=== PATIENT | male | born 1975 | race Caucasian/White ===

== ENCOUNTER 2019-04-30 09:02 | Outpatient (CLI) | payer MEDICARE, SELFPAY ==
--- NOTE | 2019-04-30 09:24 | ECG_ITS ---
Measurements Intervals [place] Rate: 54 P: 12 [place]: 147 QRS: 32 QRSD: 86 T: 1 QT: 420 QTc: 401 Interpretive Statements SINUS BRADYCARDIA VOLTAGE CRITERIA FOR LVH BORDERLINE T WAVE ABNORMALITY- INFERIOR LEADS BASELINE ARTIFACT- II, III, AVF BORDERLINE ECG Electronically Signed On 04-30-2019 10:09:12 [employer] by Florin Huerta D.O.
== END 2019-04-30 09:03 | disposition home or self-care (01) ==
PROVIDERS: PCP Internal Medicine; Visit Provider Nurse Practitioner
DX: R03.0 Elevated blood-pressure reading, without diagnosis of hypertension (principal); R94.31 Abnormal electrocardiogram [ECG] [EKG]
CPT/HCPCS: 93005

== ENCOUNTER 2019-08-04 09:26 | Emergency (ER) | payer MEDICARE, SELFPAY ==
--- NOTE | ~2019-08-04 | CT_ITS ---
EXAMINATION: CT abdomen pelvis w con DATE: 08/04/2019 10:22 INDICATION: Left lower quadrant abdominal pain TECHNIQUE: Computed tomography (CT) of the abdomen and pelvis was performed with 100 cc Omnipaque 350 intravenous contrast. Automated exposure control and iterative reconstruction technique were employe d. Exam dose: 856.54 mGy-cm total exam DLP. COMPARISON: None. FINDINGS: The included lung arce are clear. Normal heart size. No pericardial or pleural effusion. Very small sliding hiatal hernia. Diffuse hepatic steatosis. No hepatic space-occupying mass lesion. The appearance small dependent non obstructing gallstone. No gallbladder wall thickening or pericholecystic fluid or stranding. No bile duct or pancreatic duct dilatation. No pancreatic mass lesion or calcification. Normal splenic size. Normal morphology of the adrenal glands. No renal mass lesion or urinary tract calculus or hydroureteronephrosis. Normal caliber of the abdominal aorta. No intraperitoneal or retroperitoneal or pelvic mass lesion or adenopathy or ascites. Normal appendix. Minimal colonic diverticulosis. There is mild focal pericolic fat stranding at the distal descending colon as well as adjacent thicke karma of the lateral conal and anterior pararenal fascia. The findings are likely due to epiploic appe ndagitis or mild focal diverticulitis. Included skeletal structures are unremarkable. IMPRESSION: Focal pericolic inflammatory change of di stal descending colon consistent with epiploic appendagitis or mild focal diverticulitis Minimal colonic diverticulosis Very small sliding hiatal hernia Hepatic steatosis Reviewed, dictated and finalized at [facility]. Reviewed, dictated and finalized at location [facility].
[2019-08-04 09:32] VITALS: BP 174/93; PULSE 90; RESP 18; TEMP 37.5; O2SAT 98
[2019-08-04 09:49] LABS: Basophils Percent Auto 0.3 % (0.2-1.2); Eosinophils Absolute Auto 0.2 K/mm3 (0-0.3); Eosinophils Percent Auto 2.7 % (0-4.4); Hematocrit 45.4 % (42.0-52.0); Immature Granulocyte Absolute 0.02 K/mm3 (0.00-0.031); Immature Granulocyte Percent A 0.3 % (0-0.5); Lymphocytes Absolute Auto 2.74 K/mm3 (0.9-3.2); Lymphocytes Percent Auto 37.3 % (18.3-44.2); Mean Corpuscular Hemoglobin 27.6 pg (26-34); Mean Corpuscular Volume 83.6 fl (80-100); Mean Platelet Volume 9.5 fl (7.4-10.4); Monocytes Absolute Auto 0.8 K/mm3 (0.1-0.6); Monocytes Percent Auto 10.3 % (2.6-8.5); Neutrophils Absolute Auto 3.6 K/mm3 (1.3-6.7); Neutrophils Percent Auto 49.1 % (45.5-73.1); Platelet Count Result 269 k/mm3 (150-375); Red Blood Count 5.43 M/mm3 (4.6-6.20); Red Cell Distribution Width 13.1 % (11.5-14.5); White Blood Count 7.4 K/mm3 (4.5-10.0)
[2019-08-04] MEDS: MORPHINE SULFATE 4 MG/ML INJ IV PUSH (09:52)
[2019-08-04 10:01] LABS: Alanine Aminotransferase 33 U/L (4-50); Alkaline Phosphatase 56 U/L (38-126); Aspartate Amino Transferase 39 U/L (17-59); Bilirubin,Total 0.6 mg/dL (0.2-1.3); Blood Urea Nitrogen 17 mg/dL (9-20); Calcium 9.6 mg/dL (8.4-10.2); Carbon Dioxide 25 mmol/L (22-30); Chloride 100 mmol/L (98-107); Estimated CRCL calculation 104 ml/min; Estimated Glomerular Filt Rate > 60; Glucose 94 mg/dL (75-110); Lipase 44 U/L (23-300); Potassium 3.8 mmol/L (3.4-5.0); Sodium 137 mmol/L (137-145)
--- NOTE | 2019-08-04 10:20 | ED.ABDPAIN ---
HPI - Abdominal Pain General Chief Complaint: Abdominal Pain Stated Complaint: ABD PAIN X1D Time Seen by Provider: 08/04/19 09:38 History of Present Illness HPI narrative: Patient is a 43-year-old male who presents the ER with left-sided abdominal pain. Began yesterday and is increasing intensity. Sharp and located in the left lower quadrant. Patient has educational delay and has done occultly verbalizing what is going on. History obtained from mother. Has not had pain like this previously. Pain is worse with movement. He has been afebrile at home. Related Data Home Medications Medication Instructions Recorded Confirmed fenofibrate 160 mg tablet 160 mg PO DAILY 04/30/19 aouttrfbsbed-tfiqlqks-evhmxh 1 tablet PO DAILY 04/30/19 omega-3 fatty acids 1,000 mg 1,000 mg PO DAILY 04/30/19 capsule Allergies Allergy/AdvReac Type Severity Reaction Status Date / Time No Known Allergies Allergy Verified 08/04/19 09:37 Review of Systems Review of Systems: ROS unobtainable: Yes unobtainable due to medical condition PMFSH Past Medical History Medical History (Updated 08/04/19 @ 11:18 by Boris Galeas MD) Anxiety Chicken pox Cognitive impairment Expressive aphasia External hemorrhoid H/O: CVA (cerebrovascular accident) Hearing difficulty Hematochezia Hyperlipidemia Mumps Family History Family History (Updated 04/29/19 @ 12:55 by Virginia Gutierrez [facility]) Grandparent Family history of coronary artery disease Mother Breast cancer Hypertension Skin cancer Father Lung cancer Social History Social History Smoking status: Never smoker Alcohol intake: current Gender identity (if verbalized by the patient): Male Exam Narrative: Exam Narrative: GENERAL: Uncomfortable-appearing, well-nourished, and in no acute distress. HEAD: Normocephalic, atraumatic. CHEST: Clear to auscultation. No respiratory distress. HEART: Regular rate and rhythm. Normal peripheral pulses. ABDOMEN: Soft, tender palpation left lower quadrant with guarding, nondistended, normal active bowel sounds. EXTREMITIES: Normal range of motion. No edema. SKIN: Warm, dry, no rash. NEURO: Awake and alert, and neurologic baseline per family. PSYCH: Slightly anxious. Course Vital Signs Vital signs: Vital Signs Temperature 99.5 F 08/04/19 09:32 Pulse Rate 90 06/07/20 09:32 Respiratory Rate 18 08/04/19 09:32 Blood Pressure 174/93 H 08/04/19 09:32 Pulse Oximetry 98 08/04/19 09:32 Temperature 99.5 F 08/04/19 09:32 Pulse Rate 90 08/04/19 09:32 Respiratory Rate 18 08/04/19 09:32 Blood Pressure 174/93 H 08/04/19 09:32 Pulse Oximetry 98 08/04/19 09:32 MDM - Abdominal Pain Lab Data Result diagrams: 08/04/19 09:42 08/04/19 09:42 Labs: Lab Results 08/04/19 08/04/19 Range/Units 09:42 09:42 WBC 7.4 (4.5-10.0) K/mm3 RBC 5.43 (4.6-6.20) M/mm3 Hgb 15.0 (14.0-18.0) g/dL Hct 45.4 (42.0-52.0) % MCV 83.6 (80-100) fl MCH 27.6 (26-34) pg MCHC 33.0 (32-36) g/dl RDW 13.1 (11.5-14.5) % Plt Count 269 (150-375) k/mm3 MPV 9.5 (7.4-10.4) fl Immature Gran % (Auto) 0.3 (0-0.5) % Neut % (Auto) 49.1 (45.5-73.1) % Lymph % (Auto) 37.3 (18.3-44.2) % [place] % (Auto) 10.3 H (2.6-8.5) % Eos % (Auto) 2.7 (0-4.4) % Baso % (Auto) 0.3 (0.2-1.2) % Lymph # (Auto) 2.74 (0.9-3.2) K/mm3 [place] # (Auto) 0.8 H (0.1-0.6) K/mm3 Eos # (Auto) 0.2 (0-0.3) K/mm3 Baso # (Auto) 0.0 (0.0-0.1) K/mm3 Abs Immat Gran (auto) 0.02 (0.00-0.031) K/mm3 Absolute Neuts (auto) 3.6 (1.3-6.7) K/mm3 Absolute Nucleated RBC 0.0 (0.0-0.012) K/mm3 Nucleated RBC % 0.0 (0.0-0.2) % Sodium 137 (137-145) mmol/L Potassium 3.8 (3.4-5.0) mmol/L Chloride 100 (98-107) mmol/L Carbon Dioxide 25 (22-30) mmol/L BUN 17 (9-20) mg/dL Creatinine 0.70 (0.7-1.3) mg/dL Estim Creat Clear Calc 104 ml/min Estimated GFR
== END 2019-08-04 11:45 | disposition home or self-care (01) ==
PROVIDERS: Emergency Provider Emergency Medicine; PCP Internal Medicine
DX: K57.92 Diverticulitis of intestine, part unspecified, without perforation or abscess without bleeding (principal); K63.89 Other specified diseases of intestine; G31.84 Mild cognitive impairment of uncertain or unknown etiology; E78.5 Hyperlipidemia, unspecified; R47.01 Aphasia; Z86.73 Personal history of transient ischemic attack (TIA), and cerebral infarction without residual deficits; K57.90 Diverticulosis of intestine, part unspecified, without perforation or abscess without bleeding; K76.0 Fatty (change of) liver, not elsewhere classified; K44.9 Diaphragmatic hernia without obstruction or gangrene
CPT/HCPCS: 36415; 74177; 80053; 83690; 85025; 96374; 99284; J2270; Q9967

== ENCOUNTER 2020-05-05 08:19 | Outpatient (CLI) | payer MEDICARE, SELFPAY | END 2020-05-05 08:20 | disposition home or self-care (01) | LOC: ANHCOVIDVC 08:19 | PROVIDERS: PCP Internal Medicine; Visit Provider Internal Medicine | DX: Z23 Encounter for immunization (principal) | CPT/HCPCS: 0001A; 91300 ==

== ENCOUNTER 2020-05-26 08:20 | Outpatient (CLI) | payer MEDICARE, SELFPAY | END 2020-05-26 08:21 | disposition home or self-care (01) | LOC: ANHCOVIDVC 08:20 | PROVIDERS: PCP Internal Medicine; Visit Provider Internal Medicine | DX: Z23 Encounter for immunization (principal) | CPT/HCPCS: 0002A; 91300 ==

== ENCOUNTER 2020-06-18 12:44 | Emergency (ER) | payer MEDICARE, SELFPAY ==
[2020-06-18] VITALS (13 sets, daily range): BP systolic 151–177; BP diastolic 89–107; PULSE 87–98; RESP 18–26; TEMP 36.6; O2SAT 95–98
--- NOTE | ~2020-06-18 | XR_ITS ---
EXAMINATION: XR chest 1V portable DATE: 06/18/2020 14:03 INDICATION: Syncope. TECHNIQUE: A single frontal view of the chest was obtained. COMPARISON: CT abdomen and pelvis 08/04/2019 FINDINGS: The chest demonstrates clear lungs without pneumonia, pleural effusion, or pneumothorax. Th e heart size is normal. IMPRESSION: 1. No acute cardiopulmonary disease. Reviewed, dictated and finalized at location [facility].
--- NOTE | 2020-06-18 13:08 | ECG_ITS ---
Measurements Intervals [place] Rate: 94 P: 29 [place]: 116 QRS: 42 QRSD: 79 T: -22 QT: 320 QTc: 401 Interpretive Statements SINUS RHYTHM WITH SHORT [place] INTERVAL LEFT VENTRICULAR HYPERTROPHY WITH ST-T CHANGE BORDERLINE ST-T WAVE ABNORMALITY- DIFFUSE LEADS BASELINE ARTIFACT- I, II, III, AVR, AVL, AVF BORDERLINE ECG Electronically Signed On 06-18-2020 13:44:23 CDT by Florin Huerta D.O.
[2020-06-18 13:27] LABS: Basophils Percent Auto 0.3 % (0.2-1.2); Eosinophils Percent Auto 0.7 % (0-4.4); Hematocrit 45.7 % (42.0-52.0); Hemoglobin 15.1 g/dL (14.0-18.0); Immature Granulocyte Absolute 0.02 K/mm3 (0.00-0.031); Immature Granulocyte Percent A 0.3 % (0-0.5); Lymphocytes Absolute Auto 1.29 K/mm3 (0.9-3.2); Mean Corpuscular Hemoglobin 28.3 pg (26-34); Mean Corpuscular Volume 85.7 fl (80-100); Mean Platelet Volume 9.4 fl (7.4-10.4); Monocytes Absolute Auto 0.5 K/mm3 (0.1-0.6); Monocytes Percent Auto 8.8 % (2.6-8.5); Neutrophils Absolute Auto 4.2 K/mm3 (1.3-6.7); Neutrophils Percent Auto 68.9 % (45.5-73.1); Platelet Count Result 261 k/mm3 (150-375); Red Blood Count 5.33 M/mm3 (4.6-6.20); Red Cell Distribution Width 13.1 % (11.5-14.5); White Blood Count 6.2 K/mm3 (4.5-10.0)
[2020-06-18 13:46] LABS: Anion Gap 14 mmol/L (8-16); Blood Urea Nitrogen 16 mg/dL (9-20); Calcium 10.3 mg/dL (8.4-10.2); Carbon Dioxide 24 mmol/L (22-30); Chloride 99 mmol/L (98-107); Estimated CRCL calculation 81 ml/min; Estimated Glomerular Filt Rate > 60; Glucose 178 mg/dL (75-110); Potassium 4.2 mmol/L (3.4-5.0); Sodium 137 mmol/L (137-145)
[2020-06-18] MEDS: SODIUM CHLORIDE 0.9% IV 1,000 ML 999 ML IV CONT (13:50)
--- NOTE | 2020-06-18 13:57 | ED.GENADULT ---
HPI - General Adult General Chief complaint: Unspecified Stated complaint: sweaty, shaking Time Seen by Provider: 06/18/20 13:11 Source: RN notes reviewed History of Present Illness HPI narrative: Patient presents emergency department from constipation for near syncopal episode. Patient was at incision and began to feel hot and sweaty and feels like he might pass out. The patient did not have a full syncopal episode and was with his mother. Per the mother the patient does have a history of anxiety and has had episodes where he has similar feelings with his anxiety and mother notes he was anxious earlier today patient currently denies any symptoms Leiner any denies any fevers or chills chest pain, shortness of breath, abdominal pain, nausea vomiting or any other symptoms Related Data Home Medications Medication Instructions Recorded Confirmed ueqadjuyfwsv-gurissxp-gxgaab tablet 1 tablet PO DAILY 04/30/19 omega-3 fatty acids 1,000 mg 1,000 mg PO DAILY 04/30/19 capsule Allergies Allergy/AdvReac Type Severity Reaction Status Date / Time No Known Allergies Allergy Verified 06/18/20 13:35 Review of Systems Review of Systems: Narrative: Gen.: Denies fevers or chills ENT: Denies congestion Respiratory: Denies shortness of breath or cough CV: See HPI GI: Denies abdominal pain nausea, emesis or diarrhea denies burning, urgency, frequency or hematuria Musculoskeletal: Denies back pain or muscle pain Neuro: Denies numbness, tingling, weakness or focal weakness Skin: Denies rash Except as documented, all other systems reviewed and negative PMFSH Past Medical History Medical History Anxiety Chicken pox Cognitive impairment Expressive aphasia External hemorrhoid H/O: CVA (cerebrovascular accident) Hearing difficulty Hematochezia Hyperlipidemia Mumps Family History Family History (Updated 04/29/19 @ 12:55 by Virginia Doshi CMA) Grandparent Family history of coronary artery disease Mother Breast cancer Hypertension Skin cancer Father Lung cancer Social History Social History Smoking status: Never smoker Alcohol intake: current Gender identity (if verbalized by the patient): Male Exam Narrative: Exam Narrative: APPEARANCE: No acute distress, nontoxic, resting in bed EYES: EOMI HEENT: Normocephalic, atraumatic, OMM RESPIRATORY: No respiratory distress Clear to auscultation bilaterally with no rhonchi wheezing or rales. CARDIOVASCULAR: Regular rate and rhythm without murmurs rubs or gallops. ABDOMINAL: Soft, nontender, nondistended, no rebound or guarding MUSCULOSKELETAl: Moves all extremities. No clubbing, cyanosis or edema. NEURO: Awake and alert. Following commands, speech normal, no focal deficits SKIN:: Warm, dry. No rashes lesions or abrasions PSYCHIATRIC: Normal affect/mood, Course Course Emergency Course: Patient is remained asymptomatic in the ED Discussed with patient results of workup and diagnosis. Discussed need for follow-up with primary care, proper use of medication, and reasons to return to the emergency department. Patient understands and agrees to current treatment plan Vital Signs Vital signs: Vital Signs Temperature 97.8 F 06/18/20 13:05 Pulse Rate 98 06/18/20 13:05 Respiratory Rate 18 06/18/20 13:05 Blood Pressure 151/99 H 06/18/20 13:05 Pulse Oximetry 98 06/18/20 13:05 Temperature 97.8 F 06/18/20 13:05 Pulse Rate 89 06/18/20 15:10 Respiratory Rate 25 H 06/18/20 15:10 Blood Pressure 173/99 H 06/18/20 15:10 Pulse Oximetry 97 06/18/20 15:10 Medical Decision Making MDM Narrative Medical decision making narrative: Patient's episode of syncope is felt due to high risk cause. Syncopal episode was brief and patient is now back to normal mental status. EKG is reviewed without high-risk changes for syncope: There are no signs
[2020-06-18 14:19] LABS: D Dimer 0.27 ug/mL (<0.48)
[2020-06-18 14:20] LABS: Troponin I < 0.012 ng/mL (0.000-0.034)
[2020-06-18 15:19] LABS: Add Urine Microscopic? NO; Appearance Urine Clear (Clear); Bilirubin Urine Negative (Negative); Blood Urine Negative (Negative); Color Urine Yellow (Yellow); Glucose Urine UA Negative (Negative); Ketones Urine Negative (Negative); Leukocyte Esterase Ur Negative LEU/UL (Negative); Nitrate Urine Negative (Negative); Protein Urine Negative (Negative); Urobilinogen Urine Negative mg/dL (<2.0)
[2020-06-18 16:22] LABS: Troponin I < 0.012 ng/mL (0.000-0.034)
== END 2020-06-18 16:55 | disposition home or self-care (01) ==
PROVIDERS: Emergency Medicine; Emergency Provider Emergency Medicine; PCP Internal Medicine
DX: R55 Syncope and collapse (principal); E78.5 Hyperlipidemia, unspecified; F41.9 Anxiety disorder, unspecified; Z86.73 Personal history of transient ischemic attack (TIA), and cerebral infarction without residual deficits; I51.7 Cardiomegaly; R94.31 Abnormal electrocardiogram [ECG] [EKG]
CPT/HCPCS: 36415; 71045; 80048; 81003; 84484; 85025; 85380; 93005; 96360; 99284; J7030

== ENCOUNTER 2020-08-02 19:45 | Inpatient (IN) | payer MEDICARE, SELFPAY ==
[2020-08-02] VITALS (20 sets, daily range): BP systolic 121–173; BP diastolic 77–105; PULSE 83–128; RESP 17–35; TEMP 36.6–36.9; O2SAT 94–99; BMI 27.2
--- NOTE | ~2020-08-02 | XR_ITS ---
XR chest 2V DATE: 08/02/2020 20:31 INDICATION: Chest pain TECHNIQUE: PA and lateral views COMPARISON: 06/18/2020 portable AP chest FINDINGS: Normal heart size. No hilar or mediastinal enlargement. No pulmonary infiltrate or consolid ation, pleural effusion or pulmonary vascular congestion or pneumothorax. IMPRESSION: No active cardiopulmonary disease Reviewed, dictated and finalized at location A.
--- NOTE | 2020-08-02 19:54 | ECG_ITS ---
Measurements Intervals [place] Rate: 124 P: 42 [place]: 140 QRS: 54 QRSD: 73 T: -33 QT: 369 QTc: 530 Interpretive Statements SINUS TACHYCARDIA LEFT VENTRICULAR HYPERTROPHY AND ST-T CHANGE ST-T WAVE ABNORMALITY IN ANTEROLAT/INF LEADS- CONSIDER ISCHEMIA BASELINE WANDER- V1 ABNORMAL ECG Electronically Signed On 08-02-2020 21:19:04 CDT by Florin Huerta D.O.
[2020-08-02 20:09] LABS: Basophils Percent Auto 0.1 % (0.2-1.2); Eosinophils Percent Auto 0.1 % (0-4.4); Hematocrit 44.6 % (42.0-52.0); Hemoglobin 14.4 g/dL (14.0-18.0); Immature Granulocyte Absolute 0.05 K/mm3 (0.00-0.031); Immature Granulocyte Percent A 0.3 % (0-0.5); Lymphocytes Percent Auto 7.4 % (18.3-44.2); Mean Corpuscular HGB Conc 32.3 g/dl (32-36); Mean Corpuscular Hemoglobin 27.7 pg (26-34); Mean Corpuscular Volume 85.8 fl (80-100); Mean Platelet Volume 9.2 fl (7.4-10.4); Monocytes Absolute Auto 0.9 K/mm3 (0.1-0.6); Monocytes Percent Auto 6.4 % (2.6-8.5); Neutrophils Absolute Auto 12.7 K/mm3 (1.3-6.7); Neutrophils Percent Auto 85.7 % (45.5-73.1); Platelet Count Result 286 k/mm3 (150-375); Red Cell Distribution Width 13.3 % (11.5-14.5); White Blood Count 14.8 K/mm3 (4.5-10.0)
[2020-08-02 20:19] LABS: Anion Gap 25 mmol/L (8-16); Blood Urea Nitrogen 23 mg/dL (9-20); Calcium 10.4 mg/dL (8.4-10.2); Carbon Dioxide 17 mmol/L (22-30); Chloride 103 mmol/L (98-107); Estimated CRCL calculation 57 ml/min; Estimated Glomerular Filt Rate 59; Glucose 155 mg/dL (75-110); Potassium 3.4 mmol/L (3.4-5.0); Prothrombin Time 13.5 Seconds (11.1-14.7); Sodium 145 mmol/L (137-145)
[2020-08-02 20:20] LABS: Partial Thromboplastin Time 24.7 SECONDS (22.3-36.8)
[2020-08-02 20:33] LABS: Troponin I 0.208 ng/mL (0.000-0.034)
--- NOTE | 2020-08-02 20:59 | ED.GENADULT ---
HPI - General Adult General Chief complaint: Unspecified Stated complaint: Brain and chest are on fire Time Seen by Provider: 08/02/20 20:38 Source: family Limitations: clinical condition History of Present Illness HPI narrative: Patient is 44 years old white male mentally challenged brought to the emergency room by his mom because of sudden onset of nervousness in the form of tapping his feet on the ground, pointing to his chest and head saying tired started 2G p.m. today. Patient had a lot of lifting of heavy boxes today subsequently developed diaphoresis and starting that he is on fire. History of hypertension, hyperlipidemia, depression, anxiety. His brother had history of heart attack at age 3636 years old. The mother denied that the patient had any fever, chills or nausea but vomited once in the emergency room. Currently patient still pointing in his chest. Related Data Home Medications Medication Instructions Recorded Confirmed vzxdzsqrfnui-tpbdrkds-asjlzw tablet 1 tablet PO DAILY 04/30/19 06/24/20 omega-3 fatty acids 1,000 mg 1,000 mg PO DAILY 04/30/19 06/24/20 capsule aspirin 81 mg chewable tablet 81 mg PO DAILY 06/24/20 06/24/20 Allergies Allergy/AdvReac Type Severity Reaction Status Date / Time No Known Allergies Allergy Verified 06/18/20 13:35 Review of Systems Review of Systems: ROS unobtainable: Yes unobtainable due to medical condition PMFSH Past Medical History Medical History (Updated 08/02/20 @ 22:30 by Elsa Mann DO) Anxiety Chicken pox CVA (cerebral vascular accident) Old CVAs noted on MRI 2018 left basal ganglia and left internal capsule Essential hypertension Expressive aphasia External hemorrhoid Hearing difficulty Normal auditory evaluation September 2018 Hyperlipidemia Intellectual disability Mumps Family History Family History (Updated 08/02/20 @ 22:27 by Elsa Mann DO) Grandparent Family history of coronary artery disease Mother Breast cancer Hypertension Skin cancer Father Lung cancer Sibling Heart disease, Onset Age: 36 Social History Social History Smoking status: Never smoker Alcohol intake: current Gender identity (if verbalized by the patient): Male Exam Narrative: Exam Narrative: General appearance: Well-developed, well-nourished, restless, shaking Skin: Normal color Head: Normocephalic, nontraumatic Eyes: Clear conjunctiva ENT: Oropharynx normal, ears normal, nose normal Neck: Supple, nontender Chest and respiratory: Airway patent, no respiratory distress, no accessory muscle use Heart: Tachycardia Abdomen: Soft, nontender, no organomegaly, quiet bowel sounds Vascular: Normal peripheral pulses, normal capillary refill. Musculoskeletal: Normal range of motion, nontender back Neurologic: Alert and oriented ?3, MANAGER OF CLINICAL is normal as tested, no gross motor deficit Course Course Emergency Course: Improving Reevaluation(s) Reevaluation #1: Currently patient is pain-free, looks back to his normal status according to his mom evaluation. Date: 08/02/20 Time: 22:16 Consultations Consultation #1: Dr. Rodriguez Date: 08/02/20 Time: 22:16 Vital Signs Vital signs: Vital Signs Temperature 36.9 C 08/02/20 19:47 Pulse Rate 127 H 08/02/20 19:47 Respiratory Rate 25 H 08/02/20 19:47 Blood Pressure 155/105 H 08/02/20 19:47 Pulse Oximetry 96 08/02/20 19:47 Temperature 36.9 C 08/02/20 19:47 Pulse Rate 104 H 08/02/20 21:26 Respiratory Rate 34 H 08/02/20 21:16 Blood Pressure 173/92 H 08/02/20 21:16 Pulse Oximetry 97 08/02/20 21:16 Medical Decision Making [facility] Narrative Medical dec
[2020-08-02 21:19] LABS: D Dimer 0.27 ug/mL (<0.48)
[2020-08-02] MEDS: ASPIRIN 81 MG CHEWABLE TABLET 324 MG PO (21:25)
[2020-08-02] MEDS: METOPROLOL TARTRATE INJ 5 MG/5 ML VIAL IV PUSH ×3 (21:25→21:26)
[2020-08-02] MEDS: SODIUM CHLORIDE 0.9% IV 1,000 ML 999 ML IV CONT ×2 (21:26→23:33)
[2020-08-02] MEDS: ONDANSETRON INJ 4 MG/2 ML VIAL IV PUSH (21:26)
[2020-08-02] MEDS: MORPHINE SULFATE (*CRX) 4 MG/ML INJ IV PUSH (21:26)
--- NOTE | 2020-08-02 21:38 | ECG_ITS ---
Measurements Intervals [place] Rate: 93 P: 22 [place]: 142 QRS: 18 QRSD: 85 T: -6 QT: 353 QTc: 440 Interpretive Statements SINUS RHYTHM VOLTAGE CRITERIA FOR LVH BASELINE ARTIFACT- II, III, AVR, AVL, AVF, V1-V6 BORDERLINE ECG Electronically Signed On 08-03-2020 7:14:59 CDT by Florin Huerta D.O.
[2020-08-02] MEDS: LORazepam INJ (*CRX) 2 MG/ML VIAL 0.5 MG IV PUSH (22:14)
[2020-08-02] MEDS: HEPARIN SODIUM 5,000 UNITS/ML VIAL 4000 UNITS IV PUSH (22:16)
[2020-08-02] MEDS: HEPARIN SOD/D5W 100 UNITS/ML 25,000 UNITS/250 ML BAG 8 UNITS IV CONT (22:16)
--- NOTE | 2020-08-02 22:21 | PM.IMHP ---
H&P: HPI History of Present Illness Date/Time: 08/02/20 22:21 Chief Complaint: Head and chest feel like they are on fire Narrative: 44-year-old with past medical history of intellectual disability, anxiety, hyperlipidemia and hypertension who presented to the ER via private vehicle due to ?feeling like he is on fire.? The patient's mother reports that they had been outside working in the garden earlier in the day. The patient then carried 3 bags of 40 lb rock salt down to the basement. These are activities that are not unusual for the patient to perform on a frequent basis. However after he got back up stairs the patient began having severe diaphoresis. He seemed anxious and restless. His mom reports that he was tapping his feet nonstop. He was on fire. He was repetitively tapping at its chest when asked if he was having any pain. His symptoms started around 230 and lasted for about 4 hours. When the patient's symptoms persisted and then he started pulling off his pants and close in exposing himself. She noted that the patient was walking in a stiff manner in seemed to be holding his head to the side. Patient had not had any fevers or previous still symptoms. He did have 1 episode of emesis while in the ER. Initially his mother thought that he was having an anxiety attack as he has been evaluated in ER with similar symptoms. The patient denies any abdominal pain, headaches, or current nausea. Review of systems limited due to patient's intellectual disability. He reports that he is thirsty and hungry. The patient has a half brother who had an NE at the age of 36. Review of Systems Review of Systems: ROS unobtainable: Yes unobtainable due to medical condition (Intellectual disability) [facility] Past Medical History Medical History (Updated 08/03/20 @ 02:50 by Elsa Mann DO) Anxiety Chicken pox CVA (cerebral vascular accident) Old CVAs noted on MRI 2018 left basal ganglia and left internal capsule Essential hypertension Expressive aphasia External hemorrhoid Hearing difficulty Normal auditory evaluation September 2018 Hyperlipidemia Intellectual disability Mumps Surgical History Surgical History (Updated 08/03/20 @ 02:43 by Elsa Mann DO) Normal colonoscopy (~2019) Family History Family History Grandparent Family history of coronary artery disease Mother Breast cancer Hypertension Skin cancer Father Lung cancer Sibling Heart disease, Onset Age: 36 Social History Social History (Updated 08/03/20 @ 02:45 by Elsa Mann DO) Social History: He lives at home with his mother. He graduated from high school through special education program. Primary care physician: Dr. Baltazar Verduzco Code status: Full code Surrogate decision maker: Mother Smoking status: Never smoker Alcohol intake: current Substance use: never Substance use type: does not use Gender identity (if verbalized by the patient): Male Spiritual care concerns: No Meds Home Medications and Allergies Home Medications Medication Instructions Recorded Confirmed Type djdobfntibmq-kpzaqjby-bldhvu tablet 1 tablet PO DAILY 04/30/19 08/03/20 History omega-3 fatty acids 1,000 mg 1,000 mg PO DAILY 04/30/19 08/03/20 History capsule fenofibrate 160 mg tablet 160 mg PO DAILY #90 tablet 11/25/19 08/03/20 Rx atorvastatin 20 mg tablet 20 mg PO DAILY #90 tablet 06/09/20 08/03/20 Rx buspirone 7.5 mg tablet 7.5 mg PO BID #180 tablet 06/09/20 08/03/20 Rx citalopram 20 mg tablet 20 mg PO DAILY #90 tablet 06/09/20 08/03/20 Rx aspirin 81 mg chewable tablet 81 mg PO DAILY 06/24/20 08/03/20 History lisinopril 10 mg tablet 10 mg PO DAILY #30 tablet 06/24/20 08/03/20 Rx lorazepam 1 mg tablet 1 mg PO DAILY PRN #15 tablet MDD 1 06/24/20 08/03/20 Rx tablet Allergies Allergy/AdvReac Type Severity Reaction Status Date / Time No Known Allergies Allergy Verifie
[2020-08-02 22:31] LABS: Creatine Kinase 270 U/L (55-170)
--- NOTE | 2020-08-02 22:58 | PC.NURSE ---
talked to Fracisco the pharmacist, asked if heparin and NS can run together, stated that it should be fine.
[2020-08-02 23:02] LABS: Albumin Level 4.9 g/dL (3.5-5.1); Alkaline Phosphatase 44 U/L (38-126); Aspartate Amino Transferase 47 U/L (17-59); Bilirubin,Total 0.2 mg/dL (0.2-1.3)
[2020-08-02 23:09] LABS: Alanine Aminotransferase 38 U/L (4-50)
[2020-08-02 23:10] LABS: Troponin I 0.373 ng/mL (0.000-0.034)
--- NOTE | 2020-08-02 23:45 | ADMGEN ---
This patient, Mp Benitez, was admitted to IMU Room 203-01 AT 2345. Patient/family oriented to hospital policies and general routines including ID bracelet, bed and alarms, visiting hours, pain management, procedures, bathroom and other care routines, personal items, smoking policy, room service/diet, and visiting hours. Information on how to activate the Rapid Response Team has been discussed. Patient/Family are encouraged to report perceived risks to care and to ask questions if they do not understand what they are told or what they should do.
[2020-08-03] VITALS (22 sets, daily range): BP systolic 119–145; BP diastolic 61–89; PULSE 57–87; RESP 17–24; TEMP 36–36.9; O2SAT 93–98
[2020-08-03 01:58] LABS: Basophils Percent Auto 0.2 % (0.2-1.2); Eosinophils Percent Auto 0.1 % (0-4.4); Hematocrit 38.9 % (42.0-52.0); Hemoglobin 12.7 g/dL (14.0-18.0); Immature Granulocyte Absolute 0.04 K/mm3 (0.00-0.031); Immature Granulocyte Percent A 0.3 % (0-0.5); Lymphocytes Absolute Auto 1.76 K/mm3 (0.9-3.2); Lymphocytes Percent Auto 14.6 % (18.3-44.2); Mean Corpuscular HGB Conc 32.6 g/dl (32-36); Mean Corpuscular Hemoglobin 27.9 pg (26-34); Mean Corpuscular Volume 85.5 fl (80-100); Mean Platelet Volume 9.4 fl (7.4-10.4); Monocytes Absolute Auto 1.2 K/mm3 (0.1-0.6); Monocytes Percent Auto 10.1 % (2.6-8.5); Neutrophils Percent Auto 74.7 % (45.5-73.1); Platelet Count Result 233 k/mm3 (150-375); Red Blood Count 4.55 M/mm3 (4.6-6.20); Red Cell Distribution Width 13.5 % (11.5-14.5); White Blood Count 12.1 K/mm3 (4.5-10.0)
[2020-08-03 02:09] LABS: INR 1.1; Prothrombin Time 14.7 Seconds (11.1-14.7)
[2020-08-03 02:12] LABS: Partial Thromboplastin Time 123.7 SECONDS (22.3-36.8)
[2020-08-03 02:35] LABS: Troponin I 0.394 ng/mL (0.000-0.034)
[2020-08-03 05:24] LABS: Basophils Percent Auto 0.3 % (0.2-1.2); Eosinophils Percent Auto 0.1 % (0-4.4); Hematocrit 37.8 % (42.0-52.0); Hemoglobin 12.5 g/dL (14.0-18.0); Immature Granulocyte Absolute 0.04 K/mm3 (0.00-0.031); Immature Granulocyte Percent A 0.4 % (0-0.5); Lymphocytes Absolute Auto 2.18 K/mm3 (0.9-3.2); Lymphocytes Percent Auto 19.7 % (18.3-44.2); Mean Corpuscular HGB Conc 33.1 g/dl (32-36); Mean Corpuscular Hemoglobin 27.9 pg (26-34); Mean Corpuscular Volume 84.4 fl (80-100); Mean Platelet Volume 10.1 fl (7.4-10.4); Monocytes Absolute Auto 1.3 K/mm3 (0.1-0.6); Monocytes Percent Auto 11.5 % (2.6-8.5); Neutrophils Absolute Auto 7.6 K/mm3 (1.3-6.7); Platelet Count Result 245 k/mm3 (150-375); Red Blood Count 4.48 M/mm3 (4.6-6.20); Red Cell Distribution Width 13.6 % (11.5-14.5); White Blood Count 11.1 K/mm3 (4.5-10.0)
[2020-08-03 05:35] LABS: Anion Gap 8 mmol/L (8-16); Blood Urea Nitrogen 20 mg/dL (9-20); Carbon Dioxide 25 mmol/L (22-30); Chloride 107 mmol/L (98-107); Estimated CRCL calculation 91 ml/min; Estimated Glomerular Filt Rate > 60; Glucose 106 mg/dL (75-110); Sodium 140 mmol/L (137-145)
[2020-08-03 05:36] LABS: Partial Thromboplastin Time 65.9 SECONDS (22.3-36.8)
[2020-08-03 05:51] LABS: Troponin I 0.357 ng/mL (0.000-0.034)
[2020-08-03] MEDS: HEPARIN SODIUM 5,000 UNITS/ML VIAL 3000 UNITS IV PUSH (06:03)
[2020-08-03] MEDS: ASPIRIN 81 MG CHEWABLE TABLET PO (08:33)
[2020-08-03] MEDS: busPIRone HCL 2.5 MG TABLET PO ×2 (08:33→20:47)
[2020-08-03] MEDS: OMEGA 3 POLYUNSAT FATTY ACIDS 1 GM CAP PO (08:33)
[2020-08-03] MEDS: ATORVASTATIN 20 MG TABLET PO (08:33)
[2020-08-03] MEDS: FENOFIBRATE 160 MG TABLET PO (08:34)
[2020-08-03] MEDS: busPIRone HCL 5 MG TABLET PO ×2 (08:34→20:47)
[2020-08-03] MEDS: lisinopriL 10 MG TABLET PO (08:34)
[2020-08-03] MEDS: CITALOPRAM HYDROBROMIDE 20 MG TABLET PO (08:34)
--- NOTE | 2020-08-03 10:20 | PM.CNCAR ---
Assessment and Plan Additional Plan 44-year-old white male with: Chest pain incident yesterday afternoon/evening after which he was seen in the emergency room and admitted. Electrocardiogram and biomarkers suggest evidence of acute coronary syndrome. Risk factors for this include hypertension dyslipidemia and coronary disease in his half brother. In this situation we will recommend coronary angiography to guide therapeutic decisions. I did explain the procedure in detail to the patient and mother who I believe is signing the consent forms they are both agreeable and wished to proceed. Robert Perdomo MD [facility] History of Present Illness History of Present Illness Consult date/time: 08/03/20 10:20 Consult reason: chest pain Reason For Visit: NSTEMI, heat exhaustion, anxiety Narrative: This is a 44-year-old man I am seeing at the request of the hospitalist because of concern regarding acute coronary syndrome. He does not have any cardiac problems that are known prior to this but is living with his mother he has a history of hypertension dyslipidemia and anxiety disorder as well as intellectual challenging/disability. He was in his usual state of health when apparently yesterday he was helping his mother do some yd work and was carrying some 40 lb bags of rock salt in his yd/basement when he started to experience chest pain he described this as a burning substernal chest pain the in the ER he described it as his chest being on fire . His treatment in the emergency room involved aspirin, anticoagulation beta-blockers and nitrates which were rendered him pain-free after a total of about 3 or 4 hours. The patient has several 12 lead ECGs in the chart the previous ECG shows sinus mechanism with left ventricular hypertrophy and secondary repolarization abnormalities. ECG yesterday initially demonstrated some exaggeration of baseline precordial ST depression and then the 2nd tracing showed isoelectric ST segments with upright T-waves across the precordium. Troponin levels have risen slightly and in the setting am seeing him in consultation. He has an intravenous heparin infusion running he reports to have no symptoms and other than anxiety does not have any other complaints. The patient is again mentally challenged and lives with the mother who was in the room with him for this consultation. She states he has had procedures in the past including colonoscopy and has not had any difficulty being sedated. He normally does not have any exertional chest pain pressure or heaviness he denies any symptoms of orthopnea PND or lower extremity edema. The only other pertinent history his mother provides is that he had a CVA identified on MRI scan 2 or 3 years ago. There are no significant neurological sequelae of this Review of Systems Review of Systems: ROS unobtainable: Yes unobtainable due to mental status PMFSH Past Medical History Medical History (Updated 08/03/20 @ 02:50 by Elsa Mann DO) Anxiety Chicken pox CVA (cerebral vascular accident) Old CVAs noted on MRI 2018 left basal ganglia and left internal capsule Essential hypertension Expressive aphasia External hemorrhoid Hearing difficulty Normal auditory evaluation September 2018 Hyperlipidemia Intellectual disability Mumps Surgical History Surgical History (Updated 08/03/20 @ 02:43 by Elsa Mann DO) Normal colonoscopy (~2018) Family History Family History Grandparent Family history of coronary artery disease Mother Breast cancer Hypertension Skin cancer Father Lung cancer Sibling Heart disease, Onset Age: 36 Social History Social History (Updated 08/03/20 @ 02:45 by Elsa Mann DO) Social History: He lives at home with his mother. He graduated from high school through special education program. Primary care physician: Dr. Baltazar Verduzco Code status: Full code Surrogate decision maker:
[2020-08-03 12:29] LABS: Partial Thromboplastin Time 40.8 SECONDS (22.3-36.8)
--- NOTE | 2020-08-03 12:52 | WPDMODSED ---
Moderate Sedation Note-Pt Data Patient Data Diagnosis: Acute coronary syndrome/ non ST elevation [place] Present Complaint: chest pain Procedure to be performed/Plan: left heart catheterization Allergies Allergy/AdvReac Type Severity Reaction Status Date / Time No Known Allergies Allergy Verified 06/18/20 13:35 Home Medications Medication Instructions Recorded Confirmed Type szeprmsjieun-dwfhmkpb-jfzbhj tablet 1 tablet PO DAILY 04/30/19 08/03/20 History omega-3 fatty acids 1,000 mg 1,000 mg PO DAILY 04/30/19 08/03/20 History capsule fenofibrate 160 mg tablet 160 mg PO DAILY #90 tablet 11/25/19 08/03/20 Rx atorvastatin 20 mg tablet 20 mg PO DAILY #90 tablet 06/09/20 08/03/20 Rx buspirone 7.5 mg tablet 7.5 mg PO BID #180 tablet 06/09/20 08/03/20 Rx citalopram 20 mg tablet 20 mg PO DAILY #90 tablet 06/09/20 08/03/20 Rx aspirin 81 mg chewable tablet 81 mg PO DAILY 06/24/20 08/03/20 History lisinopril 10 mg tablet 10 mg PO DAILY #30 tablet 06/24/20 08/03/20 Rx lorazepam 1 mg tablet 1 mg PO DAILY PRN #15 tablet MDD 1 06/24/20 08/03/20 Rx tablet Current Medications: Active Medications Aspirin (Aspirin 81 Mg Chewable Tablet) 81 mg PO DAILY@0800 [facility] Last Admin: 08/03/20 08:33 Dose: 81 mg Documented by: Atorvastatin Calcium (Atorvastatin 20 Mg Tablet) 20 mg PO DAILY [facility] Last Admin: 08/03/20 08:33 Dose: 20 mg Documented by: Buspirone HCl (Buspirone Hcl 5 Mg Tablet) 5 mg PO Q12HR [facility] Last Admin: 08/03/20 08:34 Dose: 5 mg Documented by: Buspirone HCl (Buspirone Hcl 2.5 Mg Tablet) 2.5 mg PO Q12HR [facility] Last Admin: 08/03/20 08:33 Dose: 2.5 mg Documented by: Citalopram Hydrobromide (Citalopram Hydrobromide 20 Mg Tablet) 20 mg PO DAILY [facility] Last Admin: 08/03/20 08:34 Dose: 20 mg Documented by: Fenofibrate (Fenofibrate 160 Mg Tablet) 160 mg PO DAILY [facility] Last Admin: 08/03/20 08:34 Dose: 160 mg Documented by: Fish Oil (Young Harris 3 Polyunsat Fatty Acids 1 Gm Cap) 1 gm PO DAILY [facility] Last Admin: 08/03/20 08:33 Dose: 1 gm Documented by: Heparin Sodium (Porcine) (Heparin Sodium 5,000 Units/Ml Vial) 4,000 units IV PUSH PRN PRN PRN Reason: aPTT less than 55 seconds Heparin Sodium (Porcine) (Heparin Sodium 5,000 Units/Ml Vial) 3,000 units IV PUSH PRN PRN PRN Reason: aPTT 55 - 70 seconds Last Admin: 08/03/20 06:03 Dose: 3,000 units Documented by: Heparin Sodium/Dextrose (Heparin Sodium/D5w 100 Units/Ml) 25,000 units in 250 mls @ 9 mls/hr IV CONT .Q24H [facility]; Protocol Last Titration: 08/03/20 06:03 Dose: 900 units/hr, 9 mls/hr Documented by: Acetaminophen (Ofirmev 1,000 Mg Ivpb) 1,000 mg in 100 mls @ 400 mls/hr IVPB Q6H PRN PRN Reason: Mild Pain (1-3) or Fever Stop: 08/03/20 22:54 Lisinopril (Lisinopril 10 Mg Tablet) 10 mg PO DAILY [facility] Last Admin: 08/03/20 08:34 Dose: 10 mg Documented by: Lorazepam (Lorazepam (*Crx) 1 Mg Tablet) 1 mg PO DAILY PRN PRN Reason: anxiety Multivitamins/Minerals (Opti-Gen Tab) 1 tablet PO DAILY [facility] Last Admin: 08/03/20 08:34 Dose: Not Given Documented by: Nitroglycerin (Nitroglycerin Sl 0.4 Mg Tablet) 0.4 mg SUBLINGUAL Q5MIN PRN PRN Reason: Chest Pain Ondansetron HCl (Ondansetron Inj 4 Mg/2 Ml Vial) 4 mg IV PUSH Q4H PRN PRN Reason: Nausea Sedation/Anesthesia: No previous sedation/anesthesia problems (including family history). 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
--- NOTE | 2020-08-03 13:20 | P.PCNCC_ITS ---
Cardiac Cath Procedure Note Date of procedure:: 08/03/20 Performing physician:: Robert Perdomo MD Indication:: chest pain, ECG and enzyme evidence of non ST elevation [place] Brief clinical history:: 44-year-old man without prior cardiac history who presents with chest discomfort after exerting at home yesterday. Patient developed ST and T changes and modest troponin rise following that event Procedure Procedure performed:: left ventriculography coronary angiography Angio-Seal to right femoral artery Sedation/Medication given:: fentanyl 50 mg Versed 2 mg case start time 12:59 p.m. case end time 1:14 p.m. sedation provided by Etelvina Dimas RN, trained observer Access site:: right femoral artery Estimated blood loss:: 10-15 cc Procedure note:: patient was brought to the cardiac catheterization lab in the postabsorptive state where the right femoral triangle was prepared and draped in the usual fashion. Anesthesia was provided with 1% lidocaine infiltrated locally. Using the modified Seldinger technique the right femoral artery was punctured and a 5 Peruvian vascular sheath was placed. After this a 5 Peruvian angled pigtail catheter was used to measure left-sided central hemodynamics and to injected LV g in the MASON projection. Pigtail catheter was then withdrawn and a standard 5 [place]uv[place] FL4 catheter was used to engage and inject the left coronary artery in multiple projections a 5 [place]uvian JR4 catheter was used to engage and inject the right coronary artery. After this the cineangiograms were reviewed and the case was terminated. An angiogram was done of the femoral artery the sheath after which a 6 [place]uv[place] Angio-Seal device was deployed at the site of the arterial puncture with a good hemostatic result. Procedure was well tolerated there were no complications he left the sleep lab technologist with no evidence of a groin hematoma. Findings:: Hemodynamics: Central aortic pressure was 118 over 62 left ventricle 118 over to end-diastolic pressure 10 there is no systolic gradient on pullback across the aortic valve. Left ventricle: The LV is normal in size contractility is hyper dynamic the ejection fraction is visually estimated to be 75-80%. The left main coronary artery is widely patent the LAD is a moderate caliber artery extending down to around the apex. There is mild proximal atherosclerosis in the LAD for a relatively long segment but representing no more than 30-40% stenosis. In no projection does appear to be flow-limiting disease. Circumflex is a very large caliber vessel giving rise to 1 large OM branch. The circumflex is smooth and angiographically normal in appearance the right coronary artery is large in caliber and dominant to the posterior circulation the right coronary artery is smooth and widely patent with no evidence of coronary disease Conclusion:: 1. right coronary dominant circulation with angiographically modest coronary disease including 30-40% stenosis of the proximal LAD. 2. Hyperdynamic left ventricular systolic function Robert Perdomo MD [facility]
[2020-08-03] MEDS: METOPROLOL SUCCINATE EXT REL 50 MG TABCR PO (15:04)
[2020-08-03] MEDS: SODIUM CHLORIDE 0.9% IV 1,000 ML 125 ML IV CONT (15:04)
--- NOTE | 2020-08-03 17:08 | PM.IMPN ---
Progress Note: A&P Assessment and Plan (1) Elevated troponin: Code(s): R77.8 - Other specified abnormalities of plasma proteins Status: Acute (2) Chest pain: Qualifiers: Chest pain type: chest pain due to myocardial ischemia Ischemic chest pain type: unspecified angina pectoris type Qualified Code(s): I25.9 - Chronic ischemic heart disease, unspecified Code(s): R07.9 - Chest pain, unspecified Status: Acute (3) Dehydration: Code(s): E86.0 - Dehydration Status: Acute (4) Anxiety: Code(s): F41.9 - Anxiety disorder, unspecified Status: Acute (5) Intellectual disability: Code(s): F79 - Unspecified intellectual disabilities Status: Inactive Additional Plan Chest pain likely due to non STEMI. Cardiology has been consulted. Patient has been admitted to IMU on a heparin drip. In the ER he received multiple doses of IV Lopressor for uncontrolled hypertension. The patient's uncontrolled hypertension was likely due to his anxiety given his symptoms and his inability to verbalize symptoms. Patient's blood pressures have normalized. Will continue patient's home lisinopril. Patient is already received full-dose aspirin. Sp heart cath today Subjective Date/time seen: 08/03/20 17:08 Interval history: 4-year-old with past medical history of intellectual disability, anxiety, hyperlipidemia and hypertension who presented to the ER via private vehicle due to ?feeling like he is on fire.? Pt had NSTEMI sp heart cath today under cardiology Review of Systems Review of Systems: ROS unobtainable: Yes unobtainable due to medical condition (Intellectual disability) Exam Narrative: Exam Narrative: General: No acute distress Respiratory: Clear to auscultation bilaterally Cardiovascular: Regular rate, regular rhythm, no murmurs, 2+ bilateral radial pedal pulses Gastrointestinal: Soft, nontender, nondistended, positive bowel sounds Skin: No jaundice, no pallor Musculoskeletal: No clubbing, cyanosis or edema Neurological: Alert and oriented to person and place, hesitant speech, no localizing neurologic deficits noted on limited exam Psychiatric: Pleasant and cooperative, delayed affect Objective Data Vital Signs Vital Signs: Vital Signs - 24 hr 08/02/20 19:47 08/02/20 20:41 08/02/20 20:44 Temperature 36.9 C Pulse Rate 127 H 119 H 121 H Respiratory Rate 25 H 33 H Blood Pressure 155/105 H 170/89 H Pulse Oximetry 96 96 08/02/20 20:46 08/02/20 21:02 08/02/20 21:15 Temperature Pulse Rate 121 H 119 H 126 H Respiratory Rate 34 H 30 H 35 H Blood Pressure Pulse Oximetry 96 95 95 08/02/20 21:16 08/02/20 21:17 08/02/20 21:25 Temperature Pulse Rate 123 H 124 H 128 H Respiratory Rate 34 H 33 H Blood Pressure 173/92 H Pulse Oximetry 97 96 08/02/20 21:26 08/02/20 21:30 08/02/20 21:31 Temperature Pulse Rate 104 H 89 88 Respiratory Rate 29 H 29 H Blood Pressure 154/93 H Pulse Oximetry 95 95 08/02/20 21:46 08/02/20 21:50 08/02/20 22:01 Temperature Pulse Rate 93 92 89 Respiratory Rate 29 H 23 H 21 H Blood Pressure 162/89 H 132/85 132/83 Pulse Oximetry 97 94 99 08/02/20 22:08 08/02/20 22:15 08/02/20 22:16 Temperature Pulse Rate 89 89 89 Respiratory Rate 22 H 24 H 23 H Blood Pressure 137/89 Pulse Oximetry 94 95 96 08/02/20 23:35 08/02/20 23:55 08/03/20 00:00 Temperature 36.6 C Pulse Rate 87 83 87 Respiratory Rate 17 23 H 17 Blood Pressure 121/77 136/81 Pulse Oximetry 97 97 97 08/03/20 02:00 08/03/20 04:00 08/03/20 06:00 Temperature 36.6 C Pulse Rate 85 77 76 Respiratory Rate 23 H Blood Pressure 131/75 Pulse Oximetry 98 08/03/20 08:00 08/03/20 08:18 08/03/20 09:44 Temperature 36.0 C L Pulse Rate 68 67 Respiratory Rate 24 H Blood Pressure 132/87 Pulse Oximetry 94 94 08/03/20 12:00 08/03/20 12:10 08/03/20 13:30 Temperature 36.8 C 36.1 C L Pulse Rate
[2020-08-04] VITALS (13 sets, daily range): BP systolic 112–122; BP diastolic 60–83; PULSE 49–81; RESP 16–24; TEMP 35.8–36.6; O2SAT 94–100
[2020-08-04] MEDS: ATORVASTATIN 40 MG TABLET PO (09:13)
[2020-08-04] MEDS: OPTI-GEN TAB 1 TABLET PO (09:13)
[2020-08-04] MEDS: OMEGA 3 POLYUNSAT FATTY ACIDS 1 GM CAP PO (09:13)
[2020-08-04] MEDS: lisinopriL 10 MG TABLET PO (09:13)
[2020-08-04] MEDS: FENOFIBRATE 160 MG TABLET PO (09:13)
[2020-08-04] MEDS: METOPROLOL SUCCINATE EXT REL 50 MG TABCR PO (09:13)
[2020-08-04] MEDS: busPIRone HCL 2.5 MG TABLET PO (09:13)
[2020-08-04] MEDS: ASPIRIN 81 MG CHEWABLE TABLET PO (09:13)
[2020-08-04] MEDS: CITALOPRAM HYDROBROMIDE 20 MG TABLET PO (09:13)
[2020-08-04] MEDS: busPIRone HCL 5 MG TABLET PO (09:15)
--- NOTE | 2020-08-04 11:43 | PM.PNCARD ---
Progress Note: A&P Assessment and Plan (1) Acute non-ST elevation myocardial infarction (NSTEMI): Code(s): I21.4 - Non-ST elevation (NSTEMI) myocardial infarction <NIKO Harris - Last Filed: 08/04/20 12:05> Status: Acute <NIKO Harris - Last Filed: 08/04/20 12:05> Assessment and Plan: Presented with exertional chest pain. Mild troponin elevation following EKG with some ST and T changes. Left heart catheterization showed: 1. right coronary dominant circulation with angiographically modest coronary disease including 30-40% stenosis of the proximal LAD. 2. Hyperdynamic left ventricular systolic function Patient already on ASA, will initiate clopidogrel in addition. We will follow up with him as an outpatient. <NIKO Harris - Last Filed: 08/04/20 12:05> (2) Hypertension: Qualifiers: Hypertension type: essential hypertension Qualified Code(s): I10 - Essential (primary) hypertension <NIKO Harris - Last Filed: 08/04/20 12:05> Code(s): I10 - Essential (primary) hypertension <NIKO Harris - Last Filed: 08/04/20 12:05> Status: Acute <NIKO Harris - Last Filed: 08/04/20 12:05> Assessment and Plan: Long-standing. Managed by primary care doctor. Well controlled during this admission on lisinopril, metoprolol <NIKO Harris - Last Filed: 08/04/20 12:05> (3) Hyperlipidemia: Qualifiers: Hyperlipidemia type: unspecified Qualified Code(s): E78.5 - Hyperlipidemia, unspecified <NIKO Harris - Last Filed: 08/04/20 12:05> Code(s): E78.5 - Hyperlipidemia, unspecified <NIKO Harris - Last Filed: 08/04/20 12:05> Status: Acute <NIKO Harris - Last Filed: 08/04/20 12:05> Assessment and Plan: Managed as an outpatient by primary care doctor. On fenofibrate, atorvastatin <NIKO Harris - Last Filed: 08/04/20 12:05> Additional Plan Attending addendum: I have personally seen and examined this patient at bedside. Mother at bedside as well. I discussed with her at length plan of care, details of patient's hospitalization. I agree with the above plan of care as documented and outlined. Patient has no other subsequent complaints. No new issues overnight. Left heart catheterization revealed mild nonobstructive 30-40% stenosis and LAD unrelated to patient's troponin elevation. Given chest pain, abnormal EKG and elevated troponin despite acute plaque rupture on coronary angiogram I recommended addition of clopidogrel 75 mg daily and continuation of dual antiplatelet therapy for the next few months. Defer duration to Dr. Perdomo as an outpatient. Continue aspirin, beta-ethan statin indefinitely as tolerated. Risk factor modification counseling performed at length. stable for discharge from cardiac perspective. Follow-up with Dr. Perdomo as an outpatient in 1 month. Exam: patient awake, alert, smiling, comfortable No apparent distress nonfocal exam not verbalizing responses to questions due to mental capacity. Breathing comfortably. does not indicate chest pain. Cardiac exam regular rate and rhythm normal S1-S2 lungs clear to auscultation bilaterally abdomen soft nontender nondistended positive bowel sounds, extremities no edema clubbing or cyanosis. Right groin access site soft, no hematoma or bleeding impression and plan of care: Elevated troponin without evidence of acute plaque rupture or coronary angiography. Etiology unclear, possible coronary spasm and/or transient coronary embolization with spontaneous lysis. Continue dual anti-platelet therapy, aspirin indefinitely. Statin, beta-ethan as tolerated. From a cardiac perspective patient stable for discharge home to follow as an outpatient with Dr. Perdomo in 1 month. Disposition per hospitalist service. <Justice Sawyer MD - Last
--- NOTE | 2020-08-04 13:32 | WPDURCON ---
Assessment and Plan Assessment and plan (1) Urinary retention: Code(s): R33.9 - Retention of urine, unspecified Status: Acute Assessment and Plan: Etiology is unclear at this point time. Initiate Flomax 0.4 mg q.h.s.. Recheck bladder scan now. If volume less than 300-350 cc will re-scanned again after next void. Urology Consult Note HPI Date Seen: 08/04/20 Requesting Physician: Elsa Mann DO Primary Care Provider: Baltazar Verduzco DO Consult Narrative Narrative: Mp Benitez is a 44 year old male with some mild intellectual disability as per chart. He presented to the emergency room with chest pain and has had a non STEMI PR. He was unable to void yesterday in the mother tells me they catheter in for about a 1000 cc. Both he and the mother deny any prior voiding symptoms. 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 He graduated from high school through special education program. Primary care physician: Dr. Baltazar Verduzco Code status: Full code Surrogate decision maker: Mother Smoking status: Never smoker Alcohol intake: current Substance use: never Substance use type: does not use Gender identity (if verbalized by the patient): Male Spiritual care concerns: No Meds Home Medications and Allergies Home Medications Medication Instructions Recorded Confirmed Type askpztimmjkq-fmjmthwa-ecdari tablet 1 tablet PO DAILY 03/03/20 06/07/21 History omega-3 fatty acids 1,000 mg 1,000 mg PO DAILY 04/30/19 08/03/20 History capsule fenofibrate 160 mg tablet 160 mg PO DAILY #90 tablet 11/25/19 08/03/20 Rx atorvastatin 20 mg tablet 20 mg PO DAILY #90 tablet 06/09/20 08/03/20 Rx buspirone 7.5 mg tablet 7.5 mg PO BID #180 tablet 06/09/20 08/03/20 Rx citalopram 20 mg tablet 20 mg PO DAILY #90 tablet 06/09/20 08/03/20 Rx aspirin 81 mg chewable tablet 81 mg PO DAILY 06/24/20 08/03/20 History lisinopril 10 mg tablet 10 mg PO DAILY #30 tablet 06/24/20 08/03/20 Rx lorazepam 1 mg tablet 1 mg PO DAILY PRN #15 tablet MDD 1 06/24/20 08/03/20 Rx tablet Allergies Allergy/AdvReac Type Severity Reaction Status Date / Time No Known Allergies Allergy Verified 06/18/20 13:35 Vital Signs Vital Signs - 24 hr 08/03/20 13:45 08/03/20 14:00 08/03/20 14:21 Temperature Pulse Rate 74 69 73 Respiratory Rate 22 H 20 21 H Blood Pressure 122/81 125/82 142/89 H Pulse Oximetry 93 93 93 08/03/20 14:45 08/03/20 15:04 08/03/20 15:15 Temperature 36.4 C 36.6 C Pulse Rate 70 65 66 Respiratory Rate 20 24 H Blood Pressure 137/86 135/73 Pulse Oximetry 96 96 08/03/20 16:00 08/03/20 16:30 08/03/20 18:00 Temperature 36.9 C Pulse Rate 69 66 64 Respiratory Rate 18 Blood Pressure 126/71 Pulse Oximetry 95 08/03/20 20:00 08/03/20 22:00 08/03/20 23:54 Temperature 36.4 C 36.7 C Pulse Rate 62 57 L 60 Respiratory Rate 18 18 Blood Pressure 119/64 133/61 Pulse Oximetry 96 97
--- NOTE | 2020-08-04 13:55 | PC.NURSE ---
Patient had 2 episodes of a 2.[address] Koo and made him aware of these pauses.
[2020-08-04] MEDS: CLOPIDOGREL BISULFATE 75 MG TABLET PO (14:09)
[2020-08-04] MEDS: TAMSULOSIN HCL 0.4 MG CAPSULE PO (14:09)
--- NOTE | 2020-08-04 14:10 | PC.NURSE ---
Removed poatient [place] catheter at 11:34 am. Patient voided 300 mls of urine at 12:00 and bladder scan at 13:50 had 170 mls of urine.
--- NOTE | 2020-08-04 14:31 | PC.NURSE ---
Patient voided 450 mols at 14:31. Immediate bladder scan showed 88mls of urine retained.
--- NOTE | 2020-08-04 15:22 | PM.DS ---
DS: Admitting Diagnosis Admitting Diagnosis Admitting Diagnosis: Diaphoresis, anxious and restless. DS: Discharge Diagnosis Discharge Diagnosis (1) Acute non-ST elevation myocardial infarction (NSTEMI): Code(s): I21.4 - Non-ST elevation (NSTEMI) myocardial infarction Status: Acute (2) Heat exhaustion: Qualifiers: Encounter type: initial encounter Qualified Code(s): T67.5XXA - Heat exhaustion, unspecified, initial encounter Code(s): T67.5XXA - Heat exhaustion, unspecified, initial encounter Status: Acute (3) Elevated troponin: Code(s): R77.8 - Other specified abnormalities of plasma proteins Status: Acute (4) Urinary retention: Code(s): R33.9 - Retention of urine, unspecified Status: Acute (5) Chest pain: Qualifiers: Chest pain type: chest pain due to myocardial ischemia Ischemic chest pain type: unspecified angina pectoris type Qualified Code(s): I25.9 - Chronic ischemic heart disease, unspecified Code(s): R07.9 - Chest pain, unspecified Status: Acute (6) Dehydration: Code(s): E86.0 - Dehydration Status: Acute (7) Anxiety: Code(s): F41.9 - Anxiety disorder, unspecified Status: Acute (8) Intellectual disability: Code(s): F79 - Unspecified intellectual disabilities Status: Inactive DS: Summary Hospital Course Reason for hospitalization: 44-year-old with past medical history of intellectual disability, anxiety, hyperlipidemia and hypertension who presented to the ER via private vehicle due to ?feeling like he is on fire.? He was also having diaphoresis, anxious, restless and tapping his chest. Symptoms occurred with exertion. Please see H&P for details. Hospital Course: Patient was evaluated in the ED. Blood pressure was elevated at 155/105 with a pulse 127. EKG showed sinus tachycardia with LVH and ST T wave changes in the anterior lateral leads. He was treated with metoprolol, aspirin, Ativan and morphine. Heparin drip started. Blood pressure normalized. It was suspected his high blood pressure was related to anxiety. His BUN creatinine were mildly elevated. He had a significant metabolic acidosis with an anion gap. Chest x-ray was clear. D-dimer is negative. [place]roponin [place] 0[place]39[place] [address]. Patient was seen by cardiology. Patient underwent left heart catheterization on 08/03/2020. Left heart catheterization showed modest coronary disease including at 30-40% stenosis of the proximal LAD. Please see report for further details. He was continue on aspirin and we added Plavix. With IV fluids, his renal function and acidosis improved. It was felt patient did have an episode of heat exhaustion contributing to his symptoms. Patient was complaining of lower abdominal pain. Although he voided a good volume, bladder scan revealed urine retention. [place] catheter was placed and patient had almost 1 L of urine output. Patient does urinate frequently at home but mother not sure if the patient is emptying his bladder completely. He was started on Flomax. Urology was consulted . Patient underwent voiding trial and was able to successfully empty his bladder with minimal urine retention. Patient overall did well and was able to be discharged home on 08/04/2020. Urine culture still pending. Status at Discharge Cognitive/behavioral status at discharge: Stable Time Spent with Patient Time attestation: Total time spent providing and/or coordinating discharge services: 38 minutes Time spent: Greater than 30 minutes Exam Narrative: Exam Narrative: AF 96.5 122/83 52 24 100% ra Gen - NARD Chest - CTA bilaterally, nml RR CV - RRR S1/S2; Tele showing occasional 2.4 sec pause (Cardiology aware) Abd - Soft, NT/ND, Positive BS Ext - No pedal edema. Right groin site clean and dry without hematoma. No bruit. 2+ Rt DP Psych - Nml mood and affect Skin - Warm and dry
--- NOTE | 2020-08-10 13:00 | PC.NURSE ---
Urine cx is negative.
== END 2020-08-04 17:25 | disposition home or self-care (01) | DRG 282 ==
LOC: ANHED 22:19 → ANHIMU 23:07
PROVIDERS: Emergency Medicine; Internal Medicine Cardiovascular Disease; Specialist; Admitting Provider Internal Medicine; Emergency Provider Emergency Medicine; PCP Internal Medicine; Visit Provider Internal Medicine
PROC: 4A023N7 Measurement of Cardiac Sampling and Pressure, Left Heart, Percutaneous Approach (ICD-10-PCS; CPT 93452; principal; 2020-08-03 12:00)
PROC: 4A023N7 Measurement of Cardiac Sampling and Pressure, Left Heart, Percutaneous Approach (ICD-10-PCS; 2020-08-03 12:00)
DX: I21.4 Non-ST elevation (NSTEMI) myocardial infarction (principal); T67.5XXA Heat exhaustion, unspecified, initial encounter; I25.10 Atherosclerotic heart disease of native coronary artery without angina pectoris; F41.9 Anxiety disorder, unspecified; I10 Essential (primary) hypertension; F79 Unspecified intellectual disabilities; E86.0 Dehydration; R33.9 Retention of urine, unspecified; E78.5 Hyperlipidemia, unspecified; F32.9 Major depressive disorder, single episode, unspecified; Z86.73 Personal history of transient ischemic attack (TIA), and cerebral infarction without residual deficits; X30.XXXA Exposure to excessive natural heat, initial encounter
CPT/HCPCS: 36415; 71046; 80048; 80076; 82550; 84484; 85025; 85380; 85610; 85730; 87086; 93005; 93458; 96361; 96365; 96366; 96375; 99291; A9270; C1760; C1887; C1894; G0269; G0378; J1644; J2060; J2250; J2270; J2405; J3010; J7030; J7040

== ENCOUNTER 2020-12-09 10:26 | Outpatient (CLI) | payer MEDICARE, SELFPAY ==
--- NOTE | 2020-12-11 15:25 | WPDHOLTEREM ---
Holter/Event Monitor Holter/Event Monitor Date of procedure: 12/11/20 Holter/Event Procedure: 48 Hr Holter Monitor Diagnosis: Arrhythmia Indications: Arrhythmia Image/Tracing Quality: Acceptable Finding: This is a 48 hour Holter monitor which underlying rhythm was sinus with an average heart rate of 55 beats per minute minimum of 40 beats per minute occurring at 7:30 a.m. and a maximum of 96 beats per minute occurring at 6:48 p.m.. There is no ventricular ectopy noted throughout the study. Rare supraventricular ectopy primarily in the form of isolated premature atrial contractions and one 3 beat atrial run occurring at 0800 without associated symptoms. No prolonged pauses or high-grade AV blocks identified. No atrial fibrillation or atrial flutter. DC interval and QRS duration were within normal limits. No symptoms returned in conjunction with this study. Conclusion: Underlying sinus rhythm and sinus bradycardia with rare premature atrial contractions without atrial fibrillation, atrial flutter, prolonged pauses or high-grade AV blocks. No symptoms returned in conjunction with this study. Clinical correlation advised.
== END 2020-12-09 10:27 | disposition home or self-care (01) ==
LOC: ANHCARD 10:27
PROVIDERS: PCP Internal Medicine; Visit Provider Nurse Practitioner
DX: I49.9 Cardiac arrhythmia, unspecified (principal)
CPT/HCPCS: 93225; 93226

== ENCOUNTER 2022-01-03 09:06 | Outpatient (CLI) | payer MEDICARE, SELFPAY ==
[2022-01-03 18:48] LABS: Basophils Percent Auto 0.5 % (0.2-1.2); Eosinophils Absolute Auto 0.2 K/mm3 (0-0.3); Eosinophils Percent Auto 3.7 % (0-4.4); Hematocrit 43.7 % (42.0-52.0); Hemoglobin 13.7 g/dL (14.0-18.0); Immature Granulocyte Absolute 0.01 K/mm3 (0.00-0.031); Immature Granulocyte Percent A 0.2 % (0-0.5); Lymphocytes Absolute Auto 2.26 K/mm3 (0.9-3.2); Lymphocytes Percent Auto 37.9 % (18.3-44.2); Mean Corpuscular HGB Conc 31.4 g/dl (32-36); Mean Corpuscular Hemoglobin 27.8 pg (26-34); Mean Corpuscular Volume 88.8 fl (80-100); Mean Platelet Volume 9.9 fl (7.4-10.4); Monocytes Absolute Auto 0.6 K/mm3 (0.1-0.6); Monocytes Percent Auto 10.7 % (2.6-8.5); Neutrophils Absolute Auto 2.8 K/mm3 (1.3-6.7); Platelet Count Result 271 k/mm3 (150-375); Red Blood Count 4.92 M/mm3 (4.6-6.20); Red Cell Distribution Width 13.4 % (11.5-14.5)
[2022-01-03 19:35] LABS: Alanine Aminotransferase 30 U/L (6-50); Albumin Level 4.7 g/dL (3.5-5.1); Alkaline Phosphatase 49 U/L (38-126); Anion Gap 15 mmol/L (8-16); Aspartate Amino Transferase 31 U/L (17-59); Bilirubin,Total 0.3 mg/dL (0.2-1.3); Blood Urea Nitrogen 18 mg/dL (9-20); Calcium 9.5 mg/dL (8.4-10.2); Carbon Dioxide 23 mmol/L (22-30); Chloride 102 mmol/L (98-107); Cholesterol 182 mg/dL (0-200); Estimated Glomerular Filt Rate > 60; Glucose 82 mg/dL (65-110); HDL Direct 42 mg/dL; Potassium 3.9 mmol/L (3.4-5.0); Sodium 140 mmol/L (137-145); Triglycerides 140 mg/dL (<150)
[2022-01-03 19:47] LABS: LDL Cholesterol Direct 99 mg/dL
== END 2022-01-03 09:07 | disposition home or self-care (01) ==
PROVIDERS: PCP Internal Medicine; Visit Provider Nurse Practitioner
DX: E78.5 Hyperlipidemia, unspecified (principal); Z13.29 Encounter for screening for other suspected endocrine disorder
CPT/HCPCS: 36415; 80053; 80061; 85025

== ENCOUNTER 2022-10-17 09:10 | Emergency (ER) | payer MEDICARE, SELFPAY ==
[2022-10-17] VITALS (10 sets, daily range): BP systolic 131–187; BP diastolic 76–100; PULSE 74–117; RESP 18–27; TEMP 36.5; O2SAT 93–100
--- NOTE | ~2022-10-17 | CT_ITS ---
EXAMINATION: CT brain wo con DATE: 10/17/2022 10:23 INDICATION: Syncope. Headache. TECHNIQUE: Computed tomography (CT) of the head was performed without intravenous contrast. The mA wa s adjusted according to patient size. Iterative reconstruction technique was employed. The dose-lengt h product was 681.00 mGy-cm. COMPARISON: Brain MRI 07/13/2018 FINDINGS: There are old infarcts involving the left basal ganglia and left internal capsule. There is no intracranial hemorrhage, acute infarction, or abnormal intracranial mass lesion. There is a mild ex vacuo dilatation of body of left lateral ventricle. The orbits are normal. The paranasal sinuses a re clear. The mastoid air cells are normal. IMPRESSION: 1. Old infarcts involving the left basal ganglia and left internal capsule. Reviewed, dictated and finalized at location A.
--- NOTE | ~2022-10-17 | CT_ITS ---
EXAMINATION: CT cervical spine wo con DATE: 10/17/2022 10:23 INDICATION: Status post fall. Neck pain. TECHNIQUE: Computed tomography (CT) of the cervical spine was performed without intravenous contrast. The dose-length product was 485 mGy-cm. Automated exposure control and iterative reconstruction tech nique were employed. COMPARISON: None FINDINGS: Craniovertebral junction is normal. Vertebral body and disc heights are preserved. No acute fracture or traumatic malalignment. Odontoid process is normal. No evidence for perched facet. No pa raspinal soft tissue abnormality. There is atherosclerosis. There is a bone island of C6 in the right transverse process. IMPRESSION: 1. No acute fracture. Reviewed, dictated and finalized at location B. IMPRESSION: 1. No acute fracture.
--- NOTE | 2022-10-17 09:13 | ECG_ITS ---
Measurements Intervals [place] Rate: 75 P: 39 [place]: 146 QRS: 24 QRSD: 81 T: 4 QT: 380 QTc: 426 Interpretive Statements SINUS RHYTHM NONSPECIFIC ST & T-WAVE ABNORMALITY ABNORMAL ECG COMPARED TO ECG 08/02/2020 21:46:25 MILD T-WAVE FLATTENING Electronically Signed On 10-17-2022 12:07:07 CDT by Robert Perdomo M.D.
--- NOTE | 2022-10-17 10:17 | ED.SYNCOPE ---
HPI - Syncope General Chief Complaint: Syncope <Julieth Cruz PA-C - Last Filed: 10/17/22 19:10> Stated Complaint: syncope <Julieth Cruz PA-C - Last Filed: 10/17/22 19:10> Time Seen by Provider: 10/17/22 09:56 <Julieth Cruz PA-C - Last Filed: 10/17/22 19:10> History of Present Illness HPI narrative: 47-year-old male with a history of TIA, NM in 2019, intellectual disability and cognitive impairment, hypertension and hyperlipidemia, anxiety reports for evaluation from home with his mother who is present at bedside after a syncopal episode that occurred around 700 this morning. Per the patient's mother, the patient states he had to go to the bathroom and she heard him walk to the bathroom and then heard a loud crash. States she found the patient laying prone on the bathroom floor with his pants up. States she noticed some twitching in his lower legs. Reports he was unconscious for 5 seconds then woke up and returned to baseline. Per the patient, he reports he went to the bathroom and sat on the toilet, pulled his pants up and then lost consciousness. States he experienced tunnel vision, sweating and dizziness prior to the syncopal event. He does report hitting his head and is complaining of neck pain. They deny history of tongue biting, incontinence, history of seizures. Patient denies chest pain or shortness of breath prior to the fall, focal numbness or weakness, history of prior syncope. He denies other acquired injuries. <Julieth Cruz PA-C - Last Filed: 10/17/22 19:10> Related Data Home Medications: Home Medications Medication Instructions Recorded Confirmed [id number] tablet 1 tablet PO DAILY 04/30/19 07/08/22 omega-3 fatty acids 1,000 mg 1,000 mg PO DAILY 04/30/19 07/08/22 capsule (Fish Oil Concentrate) aspirin 81 mg chewable tablet 81 mg PO DAILY 06/24/20 07/08/22 coenzyme Q10 10 mg capsule (Co 10 mg PO ONCE 10/19/20 07/08/22 Q-10) Bacillus coagulans 250 million cell PO 01/03/22 07/08/22 cell chewable tablet (Digestive Advantage Probiotic Gummy) <Julieth Cruz PA-C - Last Filed: 10/17/22 19:10> Allergies/Adverse Reactions: Allergies Allergy/AdvReac Type Severity Reaction Status Date / Time No Known Allergies Allergy Verified 07/08/22 09:01 <Julieth Cruz PA-C - Last Filed: 10/17/22 19:10> Review of Systems Review of Systems: CONSTITUTIONAL: Denies fever, chills EYES: See HPI ENT: Denies rhinorrhea, congestion, sore throat, or otalgia. CARDIOVASCULAR: Denies chest pain, palpitations, or edema. RESPIRATORY: Denies cough or dyspnea. GASTROINTESTINAL: Denies abdominal pain, nausea, vomiting, or diarrhea. GENITOURINARY: Denies dysuria or hematuria. SKIN: Denies rash or itching. 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
[2022-10-17 10:46] LABS: Basophils Percent Auto 0.3 % (0.2-1.2); Eosinophils Percent Auto 0.5 % (0-4.4); Hematocrit 43.9 % (42.0-52.0); Hemoglobin 14.2 g/dL (14.0-18.0); Immature Granulocyte Absolute 0.03 K/mm3 (0.00-0.031); Immature Granulocyte Percent A 0.4 % (0-0.5); Lymphocytes Percent Auto 19.1 % (18.3-44.2); Mean Corpuscular HGB Conc 32.3 g/dl (32-36); Mean Corpuscular Hemoglobin 28.3 pg (26-34); Mean Corpuscular Volume 87.5 fl (80-100); Mean Platelet Volume 9.8 fl (7.4-10.4); Monocytes Absolute Auto 0.7 K/mm3 (0.1-0.6); Neutrophils Absolute Auto 5.6 K/mm3 (1.3-6.7); Neutrophils Percent Auto 70.7 % (45.5-73.1); Platelet Count Result 223 k/mm3 (150-375); Red Blood Count 5.02 M/mm3 (4.6-6.20); Red Cell Distribution Width 13.5 % (11.5-14.5); White Blood Count 7.9 K/mm3 (4.5-10.0)
[2022-10-17 10:55] LABS: Alanine Aminotransferase 37 U/L (6-50); Albumin Level 4.9 g/dL (3.5-5.1); Alkaline Phosphatase 47 U/L (38-126); Anion Gap 11 mmol/L (8-16); Aspartate Amino Transferase 40 U/L (17-59); Bilirubin,Total 0.5 mg/dL (0.2-1.3); Blood Urea Nitrogen 16 mg/dL (9-20); Calcium 9.5 mg/dL (8.4-10.2); Carbon Dioxide 27 mmol/L (22-30); Chloride 97 mmol/L (98-107); Estimated CRCL calculation 94 ml/min; Estimated Glomerular Filt Rate > 60; Glucose 116 mg/dL (65-110); Sodium 135 mmol/L (137-145)
[2022-10-17] MEDS: SODIUM CHLORIDE 0.9% IV 1,000 ML 999 ML IV CONT (11:01)
[2022-10-17 13:38] LABS: D Dimer 0.32 ug/mL (<0.48)
[2022-10-17 13:53] LABS: Troponin I < 0.012 ng/mL (0.000-0.034)
== END 2022-10-17 14:58 | disposition home or self-care (01) ==
PROVIDERS: Emergency Medicine; Emergency Provider Physician Assistant; PCP Nurse Practitioner
DX: R55 Syncope and collapse (principal); I10 Essential (primary) hypertension; I25.2 Old myocardial infarction; E78.5 Hyperlipidemia, unspecified; R47.01 Aphasia; F79 Unspecified intellectual disabilities; F41.9 Anxiety disorder, unspecified; Z86.73 Personal history of transient ischemic attack (TIA), and cerebral infarction without residual deficits; Z79.82 Long term (current) use of aspirin; R94.31 Abnormal electrocardiogram [ECG] [EKG]
CPT/HCPCS: 36415; 70450; 72125; 80053; 84484; 85025; 85380; 93005; 96360; 96361; 99284; J7030

== ENCOUNTER 2023-01-04 09:48 | Outpatient (CLI) | payer MEDICARE, SELFPAY ==
[2023-01-04 20:32] LABS: Cholesterol 193 mg/dL (0-200); HDL Direct 48 mg/dL; Triglycerides 179 mg/dL (<150)
[2023-01-04 20:44] LABS: LDL Cholesterol Direct 100 mg/dL
== END 2023-01-04 09:49 | disposition home or self-care (01) ==
LOC: ANHGOSHLAB 09:50
PROVIDERS: PCP Internal Medicine; Visit Provider Nurse Practitioner
DX: E78.5 Hyperlipidemia, unspecified (principal)
CPT/HCPCS: 36415; 80061

== ENCOUNTER 2024-01-10 09:59 | Outpatient (CLI) | payer MEDICARE, SELFPAY ==
[2024-01-10 13:46] LABS: Basophils Percent Auto 0.5 % (0.2-1.2); Eosinophils Absolute Auto 0.2 K/mm3 (0-0.3); Hematocrit 44.6 % (42.0-52.0); Hemoglobin 14.2 g/dL (14.0-18.0); Immature Granulocyte Absolute 0.02 K/mm3 (0.00-0.031); Immature Granulocyte Percent A 0.3 % (0-0.5); Lymphocytes Absolute Auto 2.02 K/mm3 (0.9-3.2); Lymphocytes Percent Auto 34.1 % (18.3-44.2); Mean Corpuscular HGB Conc 31.8 g/dl (32-36); Mean Corpuscular Hemoglobin 27.7 pg (26-34); Mean Corpuscular Volume 86.9 fl (80-100); Monocytes Absolute Auto 0.8 K/mm3 (0.1-0.6); Monocytes Percent Auto 13.2 % (2.6-8.5); Neutrophils Absolute Auto 2.9 K/mm3 (1.3-6.7); Neutrophils Percent Auto 48.9 % (45.5-73.1); Platelet Count Result 244 k/mm3 (150-375); Red Blood Count 5.13 M/mm3 (4.6-6.20); Red Cell Distribution Width 13.5 % (11.5-14.5); White Blood Count 5.9 K/mm3 (4.5-10.0)
[2024-01-10 14:01] LABS: Alanine Aminotransferase 34 U/L (6-50); Albumin Level 4.8 g/dL (3.5-5.1); Alkaline Phosphatase 47 U/L (38-126); Anion Gap 8 mmol/L (4-12); Aspartate Amino Transferase 107 U/L (17-59); Bilirubin,Total 0.7 mg/dL (0.2-1.3); Blood Urea Nitrogen 24 mg/dL (9-20); Calcium 9.6 mg/dL (8.4-10.2); Carbon Dioxide 30 mmol/L (22-30); Chloride 99 mmol/L (98-107); Cholesterol 180 mg/dL (0-200); Estimated Glomerular Filt Rate > 60; Glucose 88 mg/dL (65-110); HDL Direct 52 mg/dL; Potassium 3.9 mmol/L (3.4-5.0); Sodium 137 mmol/L (137-145); Triglycerides 93 mg/dL (<150)
[2024-01-10 14:24] LABS: LDL Cholesterol Direct 93 mg/dL
[2024-01-10 14:33] LABS: Prostate Specific Antigen 0.4 ng/mL (< OR = 4.0)
== END 2024-01-10 10:00 | disposition home or self-care (01) ==
LOC: ANHGOSHLAB 10:00
PROVIDERS: PCP Internal Medicine; Visit Provider Nurse Practitioner
DX: Z12.5 Encounter for screening for malignant neoplasm of prostate (principal); E78.5 Hyperlipidemia, unspecified; I10 Essential (primary) hypertension; Z13.29 Encounter for screening for other suspected endocrine disorder
CPT/HCPCS: 36415; 80053; 80061; 84153; 85025; G0103

== ENCOUNTER 2024-05-01 09:45 | Outpatient (CLI) | payer MEDICARE, SELFPAY ==
--- OUTSIDE RECORDS SUMMARY | 2024-05-01 10:39 | XMS_ITS | Clinical Summary ---
[facility] Address [address] [place] [address] Care Team Providers Care Motor Winder Name Role Phone KatkevenBaltazar kramer Primary Care Provider [phone]- [phone] Allergies No known active allergies Medications citalopram (CeleXA) 20 mg tablet Take 1 tablet (20 mg total) by mouth daily Active fenofibrate (TRIGLIDE) 160 mg tablet Take 1 tablet (160 mg total) by mouth daily Active aspirin 81 mg enteric coated tablet Take 1 tablet (81 mg total) by mouth daily Active busPIRone (BUSPAR) 7.5 mg tabletIndicatio ns:Generalized Anxiety Disorder Take 1 tablet (7.5 mg total) by mouth 2 (two) times a day Active lisinopriL (PRINIVIL,ZESTR IL) 10 mg tablet Take 1 tablet (10 mg total) by mouth daily Active LORazepam (ATIVAN) 1 mg tablet Take 1 tablet (1 mg total) by mouth every 6 (six) hours as needed for anxiety Active nitroglycerin (NITROSTAT) 0.[address] 1 tablet (0.4 mg total) under the tongue every 5 (five) minutes as needed for chest pain Active multivitamin capsule Take 1 capsule by mouth daily Active clonazePAM (KlonoPIN) 0.5 mg tablet TAKE 1 TABLET BY MOUTH ONCE DAILY NEEDED FOR PANIC ATTACKS 11/18/2021 Active clopidogreL (PLAVIX) 75 mg tablet Take 1 tablet by mouth once daily 90 tablet 02/27/2024 Active metoprolol XL (TOPROL-XL) 50 mg extended release tablet Take 1 tablet by mouth once daily 90 tablet 03/15/2024 Active atorvastatin (LIPITOR) 40 mg tablet Take 1 tablet by mouth once daily 90 tablet 03/15/2024 Active Active Problems Problem Noted Date Diagnosed Date Coronary artery disease invo lving [place] coronary artery of [place] heart without angina pectoris 09/03/2020 Speaking difficulty 08/13/2018 Assessment & Plan (08/13/2018 9:45 AM CDT): 42 year old man with history of intracranial hemorrhage who presents for evaluation of 3 weeks of acute onset and abruptly resolved language difficulty. No acute/subacute stroke seen on MRI, so this is not of vascular etiology and abrupt resolution would also be unexpected. Given relationship with several deaths of people close to him and his reported depression, and baseline cognitive difficulty, possible this is a depression reaction. He has poor sleeping patterns, which also likely does not help his cognitive ability and could contribute to some speech problems, but would not expect abrupt resolution. He is on aspirin and statin for stroke prevention, reasonable to continue, but I would not perform further testing at this time for chronic findings on imaging. I did offer to review images to compare to prior [facility]. Possible these findings could be new since then, or go back to time of injury. I had her complete record request form and asked her to call [facility] to help facilitate. I can see him again in the future as needed for further concern/issue Abnormal finding on MRI of brain 08/13/2018 Assessment & Plan (08/13/2018 9:46 AM CDT): Chronic left BG and IC infarcts read, would not explain symptoms. Depression 08/13/2018 Assessment & Plan (08/13/2018 9:46 AM CDT): Reports depression since family/friend deaths. Suggested he discuss with primary, reasonable to consider increasing citalopram and possibly counseling. Medical History Medical History Date Comments Depression Hyperlipidemia Anxiety Family History Medical History Relation Name Comments Lung cancer Father Breast cancer Mother Hypertension Mother Psoriasis Mother Relation Name Status Comments Father (Age 59) Mother Alive Social History Tobacco Use Types Packs/Day Years Used Date Smoking Tobacco: Never Smokeless Tobacco: Former Chew Tobacco Cessation:Counseling Given: Not Answered Alcohol Use Standard Drinks/Week Comments Not Currently 0 (1 standard drink = 0.6 oz pur e alcohol) Sex and Gender Information Value Date Recorded Sex Assigned at Not on file 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 Gender Identity Not on file Sexual Orientation Not on file Obstetrics History Last Filed Vital Signs Vital Sign Reading Time Taken Comments Blood Pressure 110/70 07/07/2022 8:26 AM CDT Pulse 54 07/07/2022 8:26 AM CDT Temperature - - Respiratory Rate 16 08/13/2018 8:55 AM CDT Oxygen Saturation 97% 07/07/2022 8:26 AM CDT Inhaled Oxygen Concentration - - Weight 74.8 kg (165 lb) 07/07/2022 8:26 AM CDT Height 167.6 cm (5' 6 ) 07/07/2022 8:26 AM CDT Body Mass Index 26.63 07/07/2022 8:26 AM CDT Plan of Treatment Health Maintenance Due Date Last Done Comments Colon Cancer Screening-Colonoscopy 1973 Depression Screening 1973 Hepatitis C Screening 1973 Prostate Cancer Screening-PSA 1973 DTaP/Tdap/Td Vaccine (1 - Tdap) 1984 Hepatitis B Screening 10/18/1991 Regular Well Visit/Exam 18-64 10/18/1991 Zoster Vaccine (1 of 2) 10/18/2023 Influenza Vaccine (#1) 2023 0, 12/11/2017 Pneumococcal vaccine <65 Aged Out No longer eligible based on patient's age to complete this topic Insurance MEDICARE SOLUTIONS Care Teams Motor Winder Relationship Specialty Start Date End Date Baltazar Verduzco DO PCP - General Internal Medicine 07/16/18
--- OUTSIDE RECORDS SUMMARY | 2024-05-01 10:39 | XMS_ITS | Referral Summary ---
[facility] Address [address] [place] [address] Care Team Providers Care Grain Ii Farmworker Name Role Phone RicardoBaltazar kramer Primary Care Provider +1- [phone] Allergies No known active allergies Medications citalopram [...] Diagnosed Date Coronary artery disease invo lving [place] coronary artery of [place] heart without angina pectoris 09/03/2020 Speaking difficulty [...] to review images to compare to prior [facility]. Possible these findings could be new since then, or go back to time of injury. I had her complete record request form and asked her to call [facility] to help facilitate. I can see [...] to consider increasing citalopram and possibly counseling. 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
[2024-05-03 03:18] LABS: Rubeola Measles IgG <13.50 AU/mL
== END 2024-05-01 09:46 | disposition home or self-care (01) ==
PROVIDERS: PCP Internal Medicine; Visit Provider Clinical Nurse Specialist
DX: Z01.84 Encounter for antibody response examination (principal)
CPT/HCPCS: 36415; 86735; 86765

== ENCOUNTER 2025-01-20 08:34 | Outpatient (CLI) | payer MEDICARE, SELFPAY ==
--- OUTSIDE RECORDS SUMMARY | 2025-01-20 08:47 | XMS_ITS | Clinical Summary ---
Author Organization [facility] Building [facility] Address [address] [place] [address] Care Team Providers Care Supervisor Prep Name Role Phone Baltazar Verduzco DO Primary Care Provider [phone]- [phone] Allergies No known active allergies Medications citalopram (CeleXA) 20 mg tablet Take 1 tablet (20 mg total) by mouth daily Active fenofibrate (TRIGLIDE) 160 mg tablet Take 1 tablet (160 mg total) by mouth daily Active busPIRone [...] MOUTH ONCE DAILY NEEDED FOR PANIC ATTACKS 2 Active omega-3 fatty acids-fish oil 300-1,000 mg capsule Take 2 capsules (2 g total) by mouth daily Active coenzyme Q10 10 mg capsule Take 1 capsule (10 mg total) by mouth daily Active metoprolol XL (TOPROL-XL) 50 mg extended release tablet Take 1 tablet by mouth once daily 90 tablet 3 Active atorvastatin (LIPITOR) 40 mg tablet TAKE 1 TABLET BY MOUTH ONCE DAILY . APPOINTMENT REQUIRED FOR FUTURE REFILLS 90 tablet 3 5 Active clopidogreL (PLAVIX) 75 mg tablet Take 1 tablet by mouth once daily 30 tablet 11 5 Active Active Problems Problem Noted Date Diagnosed Date Anxiety 06/06/2024 Essential hypertension 06/06/2024 History of syncope 06/06/2024 Hyperlipidemia LDL goal <70 06/06/2024 Coronary artery disease invo lving [place] coronary artery of [place] heart without angina pectoris 09/03/2020 Speaking difficulty [...] review images to compare to prior [facility]. Possible these findings could be new since then, or go back to time of injury. I had her complete record request form and asked her to call [facility] to help facilitate. 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 Gender Identity Not on file Sexual Orientation Not on file Last Filed Vital Signs Vital Sign Reading Time Taken Comments Blood Pressure 120/80 06/06/2024 8:10 AM CDT Pulse 52 06/06/2024 8:10 AM CDT Temperature - - Respiratory Rate 16 08/13/2018 8:55 AM CDT Oxygen Saturation 97% 06/06/2024 8:10 AM CDT Inhaled Oxygen Concentration - - Weight 74.8 kg (165 lb) 06/06/2024 8:10 AM CDT Height 167.6 cm (5' 6) 06/06/2024 8:10 AM CDT Body Mass Index 26.63 06/06/2024 8:10 AM CDT Plan of Treatment Health Maintenance Due Date Last Done Comments Colon Cancer Screening-Colonoscopy 1973 Depression Screening 1973 Hepatitis C Screening 1973 Prostate Cancer Screening-PSA 1973 DTaP/Tdap/Td Vaccine (1 - Tdap) 1984 Hepatitis B Screening 10/18/1991 Regular Well Visit/Exam 18-64 10/18/1991 Zoster Vaccine (1 of 2) 10/18/2023 Influenza Vaccine (#1) 2024 0, 12/11/2017 Pneumococcal vaccine <65 Aged Out No longer eligible based on patient's age to complete this topic Insurance [facility] MEDICARE ADVANTAGE Care Teams Supervisor Prep Relationship Specialty Start Date End Date Baltazar Verduzco DO PCP - General Internal Medicine 07/16/18
[2025-01-20 13:03] LABS: Hematocrit 42.8 % (42.0-52.0); Hemoglobin 13.6 g/dL (14.0-18.0); Immature Granulocyte Percent A 0.4 % (0-0.5); Lymphocytes Absolute Auto 2.09 K/mm3 (0.9-3.2); Mean Corpuscular HGB Conc 31.8 g/dl (32-36); Mean Corpuscular Hemoglobin 27.9 pg (26-34); Mean Corpuscular Volume 87.7 fl (80-100); Nucleated Red Blood Cells Absolute Auto 0.000 K/mm3 (0.0-0.012); Nucleated Red Blood Cells Perc 0.0 % (0.0-0.2); Platelet Count Result 223 k/mm3 (150-375); Red Blood Count 4.88 M/mm3 (4.6-6.20); White Blood Count 5.2 K/mm3 (4.5-10.0)
[2025-01-20 14:05] LABS: Alanine Aminotransferase 28 U/L (6-50); Albumin Level 4.5 g/dL (3.5-5.1); Alkaline Phosphatase 48 U/L (38-126); Anion Gap 9 mmol/L (4-12); Aspartate Amino Transferase 78 U/L (17-59); Bilirubin,Total 0.5 mg/dL (0.2-1.3); Blood Urea Nitrogen 20 mg/dL (9-20); Calcium 9.4 mg/dL (8.4-10.2); Carbon Dioxide 29 mmol/L (22-30); Chloride 99 mmol/L (98-107); Cholesterol 170 mg/dL (0-200); Estimated Glomerular Filt Rate > 60; Glucose 57 mg/dL (65-110); HDL Direct 44 mg/dL; Potassium 4.1 mmol/L (3.4-5.0); Sodium 137 mmol/L (137-145); Total Protein 8.0 g/dL (6.3-8.2); Triglycerides 124 mg/dL (<150)
[2025-01-20 14:16] LABS: Prostate Specific Antigen 0.4 ng/mL (< OR = 4.0); Thyroid Stimulating Hormone 0.974 uIU/mL (0.465-4.680)
[2025-01-20 14:53] LABS: Vitamin B12 830.0 pg/mL (239-931)
[2025-01-20 17:31] LABS: Hemoglobin A1C 5.7 % (<5.7)
== END 2025-01-20 08:35 | disposition home or self-care (01) ==
PROVIDERS: PCP Nurse Practitioner
DX: Z12.5 Encounter for screening for malignant neoplasm of prostate (principal); E78.5 Hyperlipidemia, unspecified; E55.9 Vitamin D deficiency, unspecified; R53.83 Other fatigue; I10 Essential (primary) hypertension; E16.2 Hypoglycemia, unspecified; I25.10 Atherosclerotic heart disease of native coronary artery without angina pectoris; Z13.228 Encounter for screening for other metabolic disorders; Z13.29 Encounter for screening for other suspected endocrine disorder; Z13.0 Encounter for screening for diseases of the blood and blood-forming organs and certain disorders involving the immune mechanism
CPT/HCPCS: 36415; 80053; 80061; 82172; 82306; 82607; 82746; 83036; 84153; 84443; 85025; G0103

== ENCOUNTER 2025-01-31 08:33 | Outpatient (CLI) | payer MEDICARE, SELFPAY ==
--- OUTSIDE RECORDS SUMMARY | 2025-01-31 08:42 | XMS_ITS | Clinical Summary ---
Author Organization [facility] Building B Address [address] [place] [address] Care Team Providers Care Care Transition Mgr Name Role Phone Baltazar Verduzco DO Primary Care Provider +1- [phone] Allergies No known active allergies Medications citalopram [...] <70 06/06/2024 Coronary artery disease invo lving [place] coronary artery of [place] heart without angina pectoris 09/03/2020 Speaking difficulty [...] to review images to compare to prior [facility]. Possible these findings could be new since then, or go back to time of injury. I had her complete record request form and asked her to call [facility] to help facilitate. 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
== END 2025-01-31 08:34 | disposition home or self-care (01) ==
LOC: ANHAUDIO 08:33
PROVIDERS: PCP Internal Medicine
DX: H91.93 Unspecified hearing loss, bilateral (principal); H93.12 Tinnitus, left ear; H91.90 Unspecified hearing loss, unspecified ear
CPT/HCPCS: 92556; 92567; 92587